=== PATIENT | female | born 1950 | race Caucasian/White ===

== ENCOUNTER → 2017-06-26 | Outpatient (CLI) | payer BC ==
[~2017-06-26] MED LIST: ASCO100T PO; ASPI81TA28 PO; ATOR-22 PO; CALC-323 PO; MULTTAB58 PO; RISE150T PO; VITA-23 PO
--- NOTE | 2017-06-27 07:44 | MAMMOGRAPHY REPORT ---
BILATERAL DIGITAL SCREENING MAMMOGRAM WITH CAD: 06/26/2017 CLINICAL HISTORY: Routine screening. Patient has no complaints. TECHNIQUE: Bilateral CC and MLO views of the breasts with repeat CC and MLO views to include nipples in profile and more axillary tail tissue were also obtained. Current study was also evaluated with a Computer Aided Detection (CAD) system. COMPARISON: Comparison is made to exams dated: 06/23/2016 mammogram, 06/22/2015 mammogram, 06/19/2014 mamm ogram, 06/16/2013 mammogram, 06/13/2012 mammogram, and 06/12/2011 mammogram - [facility] er. BREAST COMPOSITION: There are scattered areas of fibroglandular density in both breasts. FINDINGS: The parenchymal pattern is similar to prior exams. There is stable asymmetry in the latera l right breast. No new suspicious mass, architectural distortion or cluster of microcalcifications i s seen. IMPRESSION: ACR BI-RADS CATEGORY 1: NEGATIVE There is no mammographic evidence of malignancy. A 1 year screening mammogram is recommended. The pa tient will receive written notification of the results. Approximately 10% of breast cancers are not detected with mammography. A negative mammographic report should not delay biopsy if a clinically suggestive mass is present. Steph Gunderson M.D. ay/:06/26/2017 15:16:56 Robotics Specialist: Cassie Dickey, [facility] letter sent: Normal 1/2 BI-RADS Code: ACR BI-RADS Category 1: Negative
== END | disposition home or self-care (01) ==
LOC: C.MAMM 09:22
PROVIDERS: ATTEND Obstetrics & Gynecology
DX: Z12.31 Encounter for screening mammogram for malignant neoplasm of breast (principal)

== ENCOUNTER → 2017-10-05 | Outpatient (CLI) | payer BC ==
[~2017-10-05] MED LIST changes: -ASCO100T PO; +ASCO100T4 PO
[2017-10-05 12:42] LABS: ESTIMATED AVERAGE GLUCOSE 128 mg/dl; HA1C FLAG Normal (Normal)
[2017-10-05 12:49] LABS: URINE APPEARANCE CLEAR (CLEAR); URINE BILIRUBIN NEG (NEG); URINE COLOR YELLOW; URINE EPITHELIAL CELL AUTO >30 /lpf (0-5); URINE NITRITE NEG (NEG); URINE SPECIFIC GRAVITY 1.005 (1.000-1.030); UROBILINOGEN NEG (NEG)
[2017-10-05 12:51] LABS: MANUAL MICROSCOPIC REQUIRED? NO; REVIEW REQ? NO
[2017-10-05 12:53] LABS: BASO % 0.9 %; BASO ABS # 0.07 K/uL (0-0.2); COMPLETE YES; EOS % 4.1 %; HEMATOCRIT 42.2 % (37-47); IG% 0.1 %; LYMPH % 17.2 %; LYMPH ABS # 1.31 K/uL (1.2-3.4); MEAN CELL VOLUME 90.9 fL (80-100); MEAN CORPUSCULAR HEMOGLOBIN 29.7 pg (25-34); MEAN CORPUSCULAR HGB CONC 32.7 g/dl (32-36); MEAN PLATELET VOLUME 12.2 fL (7.4-10.4); MONO % 11.1 %; NEUT % 66.6 %; PLATELET COUNT 264 K/uL (130-400); RED BLOOD COUNT 4.64 M/uL (4.2-5.4)
[2017-10-05 13:03] LABS: ALT/SGPT 25 U/L (12-78); AST/SGOT 19 U/L (15-37); BLOOD UREA NITROGEN 16 mg/dl (7-18); BUN/CREATININE RATIO 20.9 (10-20); CALCIUM 8.9 mg/dl (8.5-10.1); CARBON DIOXIDE 28 mmol/L (21-32); CHLORIDE 102 mmol/L (98-107); CREATININE 0.77 mg/dl (0.60-1.20); GLUCOSE 86 mg/dl (70-99); POTASSIUM 3.9 mmol/L (3.5-5.1); SODIUM 136 mmol/L (136-145)
[2017-10-05 13:15] LABS: ALKALINE PHOSPHATASE 56 U/L (45-117); CHOLESTEROL 166 mg/dl (0-200); CHOLESTEROL/HDL RATIO 1.8; HDL CHOLESTEROL 91 mg/dl; LDL CHOLESTEROL CALCULATED 63 mg/dl; TRIGLYCERIDES 58 mg/dl (0-150); VERY LOW DENSITY LIPOPROT CALC 12 mg/dl
== END | disposition home or self-care (01) ==
LOC: C.LABPBG 07:39
PROVIDERS: ATTEND Internal Medicine Pulmonary Disease
DX: Z00.00 Encounter for general adult medical examination without abnormal findings (principal); E78.5 Hyperlipidemia, unspecified; G80.9 Cerebral palsy, unspecified; R73.9 Hyperglycemia, unspecified

== ENCOUNTER → 2018-01-22 | Day surgery (SDC) | payer BC ==
[2017-12-18 14:15] VITALS: Ht 162.6 cm; Wt 95.5 kg
--- NOTE | 2018-01-10 13:29 | History and Physical: Surg Cnt ---
History & Physical Date Jan 10, 2018. Chief Complaint preoperative clearance for cataract surgery History of Present Illness Pt. is a 67 y.o. female with a medical history significant for anxiety, cerebral palsy, diverticulosis, HLD, and internal hemorrhoids. She presents preoperative cataracts surgery clearance. She is scheduled for left eye cataract surgery on 01/22/2018 and right eye cataract surgery on 02/05/2018. Dr. Hubbard is her surgeon. She has had prior surgery without complication with the exception of difficulty waking up following a tubal ligation in 1984. She has had surgeries since without problems. She has never had postop complications. There is no personal or FMHx of thromboembolic complications. In regards to symptoms she states that she does have difficulty seeing at night d/t her cataracts. The remainder of her ROS however was negative. She denied headache, cough, SOB, chest pain, abdominal pain, N/V, changes in her bowel or bladder habits, mood disturbance, bleeding problems, or skin changes. Her PMHx, surgical history, FMHx, social history, current medications, and allergies were reviewed today. In the interim since her last appointment she has had a basal cell CA removed. Past Medical/Surgical History PMHx: cerebral palsy, anxiety, diverticulosis, HLD, basal cell CA of the skin, internal hemorrhids PSHx: tubal ligation, hysterectomy, and a deviated nasal septum repair Additional History Hepatic Disease: No Endocrine Disorder: No Kidney Disease: No Hypertension: No Heart Disease: No Bleeding Tendencies: No Infectious Diseases: No Allergies Coded Allergies: Meperidine (Verified Allergy, Unknown, VOMITING, 12/18/17) Home Medications Scheduled Ascorbic Acid (Vitamin C), 1 TAB PO BID Aspirin (Aspirin Ec), 81 MG PO QAM Atorvastatin (Lipitor), 20 MG PO HS Calcium Citrate-Vitamin D (Citracal Maximum), 1 TAB PO BID Vitamin E (Vitamin E Complex), 1 TAB PO QAM Social History Smoking Status: Never Smoker Alcohol Use: minimal alcohol intake Physical Examination Skin: warm/dry, no rash Eyes: normal inspection, EOMI, sclerae normal ENT: normal ENT inspection, pharynx normal Head: normocephalic, atraumatic Neck: supple, no adenopathy, trachea midline Respiratory/Chest: lungs clear, normal breath sounds, no respiratory distress Cardiovascular: regular rate, rhythm, no edema, no murmur Abdomen / GI: normal bowel sounds, non tender Back: normal inspection Extremities: normal inspection Neurologic/Psych: no motor/sensory deficits, alert Addiitonal Comments: Pt. is a 67 y.o. female who presents for preoperative clearance for cataract surgery. She is scheduled for left eye cataract surgery on 01/22/2018 and right eye cataract surgery on 02/05/2018. Her surgeon is Dr. Hubbard. She has been cleared from a medical standpoint for cataract surgery as there is no absolute contraindication and she is considered an acceptable risk. Diagnosis PreOperative Clearance for bilateral cataract surgery Operation Cataract
[~2018-01-22] VITALS: Ht 162.6 cm; Wt 95.5 kg
[~2018-01-22] MED LIST changes: +500ML BSS 0.3ML EPI 1:1000PF IRRIG ONE; +ACETAMINOPHEN 325 MG TAB PO PRN; +AMVISC PLAIN 0.8ML SYRINGE INT OCU ONE; +AMVISC PLUS 0.8ML SYRINGE INT OCU ONE; +ATROPINE SULFATE 0.1 MG/ML 5ML SYR IV PRN; +BROM0.07 OPL; +BSS FLUSH ONE; +DIFL0.0519 OPL; +EpHEDrine SULFATE INJ 50 MG/ML AMP IV PRN; +EpINEphrine INJ 1MG/ML AMP 1 MG/ML AMP ONE; +LACTATED RINGER'S 1000ML 500 ML IV SCH; +LIDOCAINE 3.5% OPH GEL PER APPLICATION CHARGE ONE; +LIDOCAINE HCL 1% MPF 2 ML VIAL ONE; +MIDAZOLAM HCL 1 MG/ML 2ML VIAL ONE; -MULTTAB58 PO; +POVIDONE-IODINE OP SOLN 30 ML BTL ONE; +PROPARACAINE 0.5% OP SOLN PER DROP CHARGE OPL SCH; -RISE150T PO; +TOBRAMYCIN/DEXAMETHASONE OPH OINT PER APPLN CHARGE ONE; +[UNRECOGNIZED DRUG - OTHER] OPL
[2018-01-22] MEDS: PHENYLEPHRINE HCL 2.5% OP SOLN PER DROP CHARGE OPL SCH ×2 (07:40→07:45)
[2018-01-22] MEDS: TROPICAMIDE 1% OP SOLN PER DROP CHARGE OPL SCH ×2 (07:41→07:46)
[2018-01-22] MEDS: CYCLOPENTOLATE HCL 1% OP SOLN PER DROP CHARGE OPL SCH ×2 (07:42→07:47)
[2018-01-22] MEDS: KETOROLAC 0.5% OP SOLN PER DROP CHARGE OPL SCH ×2 (07:43→07:48)
[2018-01-22] MEDS: GATIFLOXACIN OP SOLN PER DROP CHARGE OPL SCH ×2 (07:44→07:54)
--- NOTE | 2018-01-22 08:23 | History & Physical Bridge - SC ---
H&P Re-Evaluation Bridge Note: I have examined the patient, reviewed the History & Physical and in the interval since the performance of the History & Physical I have noted the following changes of clinical significance: Diagnosis: Left Cataract Procedure: Left Cataract Removal with Lens Implant No changes noted
--- NOTE | 2018-01-22 08:53 | [facility] Operative Report ---
Operative Report Date of Service Jan 22, 2018. Operative Report 1. PREOPERATIVE DIAGNOSIS: Cataract of the left eye. 2. POSTOPERATIVE DIAGNOSIS: Same. 3. PROCEDURE: Phacoemulsification with intraocular lens implantation of the left eye. SURGEON: Dr. Adis Hubbard. ANESTHESIA: Topical Lidocaine gel, 1% Non- Preserved intracameral Lidocaine, and monitored intravenous sedation. INDICATIONS FOR THE PROCEDURE: The patient is a 67 - year-old female with a history of cataract of the left eye causing significant visual impairment. The details of the proposed procedure were explained to the patient who asked appropriate questions and following discussion of all risks, benefits and alternatives agreed to have the procedure done. Patient had corneal astigmatism and therefore elected to have a toric lens placed. 4. OPERATION AND FINDINGS: DESCRIPTION OF PROCEDURE: After informed consent was obtained, the patient was placed in an upright position and the cornea was marked at 85 degrees using the Joox corneal marking tool. The patient was brought to the Operating Room at the [facility]. The patient was placed in a supine position and then the left eye was prepped and draped in the usual sterile fashion for intraocular surgery. A drop of topical Lidocaine gel was placed in the operative eye. A wire lid speculum was then placed in the fornices. A corneal paracentesis was then created temporally. The Non-Preserved Lidocaine was then instilled into the anterior chamber. The anterior chamber was then pressurized with viscoelastic. A 2.0 mm clear corneal incision was then created temporally. A cystotome was inserted into the anterior chamber and used to create a tear in the anterior lens capsule. This capsular tear was then used to create a small flap and the flap was dragged in a counterclockwise direction in order to create a continuous curvilinear capsulorrhexis. Hydrodissection was accomplished with balanced salt solution. Phacoemulsification of the lens nucleus was then performed in a standard [id number]-bfl-[id number] technique. The phaco time was 20 seconds with an average power of 13 %. The remaining cortical material was removed using irrigation aspiration. The capsular bag was then filled with viscoelastic. A Yuri [id number] +17.5 diopters lens was then loaded into the injector and injected into the capsular bag. The lens was aligned with the previously made corneal baldwin. The remaining viscoelastic was removed with the irrigation aspiration handpiece. The wound was hydrated and then checked and found to be watertight. The intraocular pressure was checked and found to be adequate. The wire lid speculum was removed and the patient's face was cleaned and dried. TobraDex ointment was placed in the inferior fornix. The patient was discharged to the Recovery Room having tolerated the procedure well. There were no complications. The patient will be seen tomorrow in the office for follow-up. I attest to the content of the Intraoperative Record and any orders documented therein. Any exceptions are noted below.
--- NOTE | 2018-01-22 08:54 | Discharge Instructions-SurgCtr ---
Discharge Instructions Date of Service Jan 22, 2018. Visit Reason for Visit: Cataract Left Eye Discharge Discharge Diagnosis / Problem: cataract Discharge Goals Goal(s): Improve function Activity Recommendations Activity Limitations: per Instructions/Follow-up section Anesthesia . Post Anesthesia Instructions: If you have had General Anesthesia or IV Sedation: * Do not drive today. * Resume driving when surgeon permits. * Do not make important decisions or sign legal documents today. * Call surgeon for: 1. Temperature elevations greater than 101 degrees F. 2. Uncontrollable pain. 3. Excessive bleeding. 4. Persistent nausea and vomiting. 5. Medication intolerance (nausea, vomiting or rash). * For nausea and vomiting use only clear liquids such as: tea, soda, bouillon until nausea subsides, then gradually increase diet as tolerated. * If you have any concerns or questions, call your surgeon's office. If physician is unavailable and it is an emergency, call 911 or go to the nearest emergency room. . Diet Recommendations Home Diet: resume previous diet Procedures Procedures Performed: Left Cataract Phacoemulsification With Intraocular Lens Implant Pending Studies Studies pending at discharge: no Medical Emergencies . Who to Call and When: Medical Emergencies: If at any time you feel your situation is an emergency, please call 911 immediately. . Non-Emergent Contact Non-Emergency issues call your: Explosive Man . . "Provider Documentation" section prepared by Adis Hubbard. .
--- NOTE | 2018-01-22 09:22 | Anesthesia Progress Nt - [facility] ---
Anesthesia Post Op Note Date & Time Jan 22, 2018 at 09:22 Vital Signs Pain Intensity: 0 Vital Signs Past 12 Hours Date Time Temp Pulse Resp B/P (MAP) Pulse Ox O2 Delivery O2 Flow Rate FiO2 01/22/18 08:54 36.7 68 16 124/75 (91) 99 Room Air 01/22/18 07:29 36.7 70 20 136/77 (96) 97 Room Air Notes Mental Status: alert / awake / arousable, participated in evaluation Pt Amnestic to Procedure: Yes Nausea / Vomiting: adequately controlled Pain: adequately controlled Airway Patency, RR, SpO2: stable & adequate BP & HR: stable & adequate Hydration State: stable & adequate Anesthetic Complications: no major complications apparent
[2018-01-22 09:33] VITALS: BP 137/88; PULSE 70; O2SAT 97
== END | disposition home or self-care (01) ==
LOC: X.SURG 07:03
PROVIDERS: ATTEND Ophthalmology
DX: H26.9 Unspecified cataract (principal); G80.9 Cerebral palsy, unspecified; E78.5 Hyperlipidemia, unspecified; E66.9 Obesity, unspecified; Z68.39 Body mass index [BMI] 39.0-39.9, adult; Z90.710 Acquired absence of both cervix and uterus; Z88.6 Allergy status to analgesic agent; Z79.82 Long term (current) use of aspirin; Z98.51 Tubal ligation status; Z98.890 Other specified postprocedural states; Z85.828 Personal history of other malignant neoplasm of skin; Z82.49 Family history of ischemic heart disease and other diseases of the circulatory system; Z80.0 Family history of malignant neoplasm of digestive organs

== ENCOUNTER → 2018-02-05 | Day surgery (SDC) | payer BC ==
[2018-02-01 11:04] VITALS: Ht 162.6 cm; Wt 95.5 kg
[~2018-02-05] VITALS: Ht 162.6 cm; Wt 95.5 kg
[~2018-02-05] MED LIST changes: -BROM0.07 OPL; -DIFL0.0519 OPL; +OCUCOAT 1 ML SOLN IO ONE; -PROPARACAINE 0.5% OP SOLN PER DROP CHARGE OPL SCH; +PROPARACAINE 0.5% OP SOLN PER DROP CHARGE OPR SCH; -[UNRECOGNIZED DRUG - OTHER] OPL
[2018-02-05] MEDS: PHENYLEPHRINE HCL 2.5% OP SOLN PER DROP CHARGE OPR SCH ×2 (07:33→07:40)
[2018-02-05] MEDS: TROPICAMIDE 1% OP SOLN PER DROP CHARGE OPR SCH ×2 (07:34→07:41)
[2018-02-05] MEDS: CYCLOPENTOLATE HCL 1% OP SOLN PER DROP CHARGE OPR SCH ×2 (07:35→07:46)
--- NOTE | 2018-02-05 07:35 | History & Physical Bridge - SC ---
H&P Re-Evaluation Bridge Note: I have examined the patient, reviewed the History & Physical and in the interval since the performance of the History & Physical I have noted the following changes of clinical significance: No changes noted
[2018-02-05] MEDS: KETOROLAC 0.5% OP SOLN PER DROP CHARGE OPR SCH ×2 (07:36→07:47)
[2018-02-05] MEDS: GATIFLOXACIN OP SOLN PER DROP CHARGE OPR SCH ×2 (07:37→07:48)
--- NOTE | 2018-02-05 08:17 | [facility] Operative Report ---
Operative Report Date of Service Feb 05, 2018. Operative Report 1. PREOPERATIVE DIAGNOSIS: Cataract of the right eye. 2. POSTOPERATIVE DIAGNOSIS: Same. 3. PROCEDURE: Phacoemulsification with intraocular lens implantation of the right eye. SURGEON: Dr. Adis Hubbard. ANESTHESIA: Topical Lidocaine gel, 1% Non- Preserved intracameral Lidocaine, and monitored intravenous sedation. INDICATIONS FOR THE PROCEDURE: The patient is a 67 - year-old female with a history of cataract of the right eye causing significant visual impairment. The details of the proposed procedure were explained to the patient who asked appropriate questions and following discussion of all risks, benefits and alternatives agreed to have the procedure done. Patient had corneal astigmatism and therefore elected to have a toric lens placed. 4. OPERATION AND FINDINGS: DESCRIPTION OF PROCEDURE: After informed consent was obtained, the patient was placed in an upright position and the cornea was marked at 77 degrees using the [employer] corneal marking tool. The patient was brought to the Operating Room at the [facility]. The patient was placed in a supine position and then the right eye was prepped and draped in the usual sterile fashion for intraocular surgery. A drop of topical Lidocaine gel was placed in the operative eye. A wire lid speculum was then placed in the fornices. A corneal paracentesis was then created temporally. The Non-Preserved Lidocaine was then instilled into the anterior chamber. The anterior chamber was then pressurized with viscoelastic. A 2.0 mm clear corneal incision was then created temporally. A cystotome was inserted into the anterior chamber and used to create a tear in the anterior lens capsule. This capsular tear was then used to create a small flap and the flap was dragged in a counterclockwise direction in order to create a continuous curvilinear capsulorrhexis. Hydrodissection was accomplished with balanced salt solution. Phacoemulsification of the lens nucleus was then performed in a standard doshso-cea-hvubhfl technique. The phaco time was 20 seconds with an average power of 11 %. The remaining cortical material was removed using irrigation aspiration. The capsular bag was then filled with viscoelastic. A Yuri [id number] +17.5 diopters lens was then loaded into the injector and injected into the capsular bag. The remaining viscoelastic was removed with the irrigation aspiration handpiece. The lens was aligned with the previously made corneal baldwin. The wound was hydrated and then checked and found to be watertight. The intraocular pressure was checked and found to be adequate. The wire lid speculum was removed and the patient's face was cleaned and dried. TobraDex ointment was placed in the inferior fornix. The patient was discharged to the Recovery Room having tolerated the procedure well. There were no complications. The patient will be seen tomorrow in the office for follow-up. I attest to the content of the Intraoperative Record and any orders documented therein. Any exceptions are noted below.
--- NOTE | 2018-02-05 08:18 | Discharge Instructions-SurgCtr ---
Discharge Instructions Date of Service Feb 05, 2018. Visit Reason for Visit: Cataract Right Eye Discharge Discharge Diagnosis / Problem: cataract Discharge Goals Goal(s): Improve function Activity Recommendations Activity Limitations: per Instructions/Follow-up section Anesthesia . Post Anesthesia Instructions: If you have had General Anesthesia or IV Sedation: * Do not drive today. * Resume driving when surgeon permits. * Do not make important decisions or sign legal documents today. * Call surgeon for: 1. Temperature elevations greater than 101 degrees F. 2. Uncontrollable pain. 3. Excessive bleeding. 4. Persistent nausea and vomiting. 5. Medication intolerance (nausea, vomiting or rash). * For nausea and vomiting use only clear liquids such as: tea, soda, bouillon until nausea subsides, then gradually increase diet as tolerated. * If you have any concerns or questions, call your surgeon's office. If physician is unavailable and it is an emergency, call 911 or go to the nearest emergency room. . Diet Recommendations Home Diet: resume previous diet Procedures Procedures Performed: Right Cataract Phacoemulsification With Intraocular Lens Implant; Toric Lens Pending Studies Studies pending at discharge: no Medical Emergencies . Who to Call and When: Medical Emergencies: If at any time you feel your situation is an emergency, please call 911 immediately. . Non-Emergent Contact Non-Emergency issues call your: Hydrochloric Acid Operator . . "Provider Documentation" section prepared by Adis Hubbard. .
[2018-02-05 08:19] VITALS: TEMP 37.1
[2018-02-05 08:46] VITALS: BP 143/96; PULSE 70; O2SAT 98
--- NOTE | 2018-02-05 08:50 | Anesthesia Progress Nt - [facility] ---
Anesthesia Post Op Note Date & Time Feb 05, 2018 at 08:50 Vital Signs Pain Intensity: 2 Vital Signs Past 12 Hours Date Time Temp Pulse Resp B/P (MAP) Pulse Ox O2 Delivery O2 Flow Rate FiO2 02/05/18 08:46 70 16 143/96 (112) 98 Room Air 02/05/18 08:19 37.1 69 18 117/71 (86) 99 Room Air 02/05/18 07:08 36.7 70 16 168/85 (112) 97 Room Air Notes Mental Status: alert / awake / arousable, participated in evaluation Pt Amnestic to Procedure: Yes Nausea / Vomiting: adequately controlled Pain: adequately controlled Airway Patency, RR, SpO2: stable & adequate BP & HR: stable & adequate Hydration State: stable & adequate Anesthetic Complications: no major complications apparent
== END | disposition home or self-care (01) ==
LOC: X.SURG 06:41
PROVIDERS: ATTEND Ophthalmology
DX: H26.8 Other specified cataract (principal); F41.9 Anxiety disorder, unspecified; G80.9 Cerebral palsy, unspecified; E78.5 Hyperlipidemia, unspecified; G81.90 Hemiplegia, unspecified affecting unspecified side; Z85.828 Personal history of other malignant neoplasm of skin; Z82.49 Family history of ischemic heart disease and other diseases of the circulatory system; Z79.82 Long term (current) use of aspirin; Z79.899 Other long term (current) drug therapy

== ENCOUNTER 2018-02-15 13:37 | Emergency (ER) | payer BC ==
[~2018-02-15 13:37] MED LIST changes: -500ML BSS 0.3ML EPI 1:1000PF IRRIG ONE; -ACETAMINOPHEN 325 MG TAB PO PRN; -AMVISC PLAIN 0.8ML SYRINGE INT OCU ONE; -AMVISC PLUS 0.8ML SYRINGE INT OCU ONE; -ATROPINE SULFATE 0.1 MG/ML 5ML SYR IV PRN; -BSS FLUSH ONE; -EpHEDrine SULFATE INJ 50 MG/ML AMP IV PRN; -EpINEphrine INJ 1MG/ML AMP 1 MG/ML AMP ONE; -LACTATED RINGER'S 1000ML 500 ML IV SCH; -LIDOCAINE 3.5% OPH GEL PER APPLICATION CHARGE ONE; -LIDOCAINE HCL 1% MPF 2 ML VIAL ONE; -MIDAZOLAM HCL 1 MG/ML 2ML VIAL ONE; -OCUCOAT 1 ML SOLN IO ONE; -POVIDONE-IODINE OP SOLN 30 ML BTL ONE; -PROPARACAINE 0.5% OP SOLN PER DROP CHARGE OPR SCH; -TOBRAMYCIN/DEXAMETHASONE OPH OINT PER APPLN CHARGE ONE
[2018-02-15 13:39] VITALS: Ht 162.6 cm
[2018-02-15] MEDS ORDERED: OXYCODONE HCL IR 5 MG TAB (IMMEDIATE RELEASE) PO STA (14:06)
--- NOTE | 2018-02-15 14:11 | EMERGENCY ROOM VISIT NOTE ---
History Report prepared by Yulisa: Tahir Sanches Under the Supervision of: Dr. Leonel Peralta M.D. First contact with patient: 13:58 Chief Complaint: BACK PAIN Stated Complaint: BACK PAIN History of Present Illness The patient is a 67 year old female who presents to the Emergency Room with complaints of constant back pain that began 2 days ago. She current rates her discomfort a 9/10 in severity. The patient states she had a mechanical fall 2 days ago when her leg slipped out from under her. She states that her pain worsens with movement and heat. She states that she has Cerebral Palsy and her left foot movement is unchanged from baseline. She has had minimal improvement with Aleve. She is allergic to Demerol. She denies hip pain, abdominal pain, bruises, loss of bowl or bladder control, fevers, and chills. She denies using a walker. She drove over to the ED. Source of History: patient Onset: 3 days ago Position: back Symptom Intensity: 9/10 Timing: constant Modifying Factors (Worsening): movement, other (heat) Modifying Factors (Relieving): other (minimal relief from Alleve) Associated Symptoms: No fevers, No chills, No abdominal pain Note: Patient denies hip pain, bruises, loss of bowel or bladder control. Review of Systems See HPI for pertinent positives & negatives. A total of 10 systems reviewed and were otherwise negative. Past Medical & Surgical Medical Problems: (1) HTN (hypertension) Family History FHx: cancer FHx: heart disease Hypertension Social History Smoking Status: Never Smoker Alcohol Use: none Drug Use: none Marital Status: in relationship Housing Status: lives with friends Occupation Status: unemployed Current/Historical Medications Scheduled Ascorbic Acid (Ascorbic Acid), 1 TAB PO DAILY Aspirin (Aspirin Ec), 81 MG PO QAM Atorvastatin (Lipitor), 20 MG PO HS Calcium Citrate-Vitamin D (Citracal Maximum), 1 TAB PO BID Sertraline (Zoloft), 25 MG PO DAILY Vitamin E (Vitamin E Complex), 1 TAB PO QAM Allergies Coded Allergies: Meperidine (Verified Allergy, Unknown, VOMITING, 02/15/18) Physical Exam Vital Signs Date Time Temp Pulse Resp B/P (MAP) Pulse Ox O2 Delivery O2 Flow Rate FiO2 02/15/18 15:56 36.6 77 18 139/81 98 02/15/18 15:55 77 18 139/81 98 Room Air 02/15/18 13:39 36.6 73 18 160/86 98 Room Air Physical Exam GENERAL: Patient is uncomfortable appearing and in mild distress. She has pain with sitting up. EYES: No scleral icterus, unremarkable pupils. ENT: Mucous membranes moist, no nasal congestion. NECK: No masses appreciated, no meningismus, trachea is midline. RESPIRATORY: No dyspnea. Clear to auscultation and equal bilaterally. No wheeze , no rhonchi. CARDIOVASCULAR: Regular rate and rhythm. No murmurs, rubs, gallops appreciated. GASTROINTESTINAL: Abdomen soft, nontender, no peritonitis. Bowel sounds positive. No masses appreciated. BACK: Tenderness to palpation below lumbar back and low left lumbar back. No midline tenderness, no CVA tenderness EXTREMITIES: Mild pain with range of motion of left hip. Flexion issues of left arm and left leg which is chronic.Wasting of left arm. No cyanosis, no edema. NEUROLOGIC: Alert and oriented, no acute motor or sensory deficits, no focal weakness, cranial nerves grossly intact. SKIN: No rash, no jaundice, no diaphoresis. Medical Decision & Procedures ER Provider Diagnostic Interpretation: Radiology results and stated below per my review and radiologist interpretation: L PELVIS/UNILATERAL HIP 2-3VIEWS CLINICAL HISTORY: low left back pain in to left hip s/p fall 48 hrs ago trauma. Pain. COMPARISON: None. DISCUSSION: Mild degenerative changes of the hips bilaterally. No evidence for acute bony pathology. Study is specifically negative for fracture. No evidence for acetabular protrusion. There is no evidence for soft tissue swelling. IMPRESSION: Mild generalized degenerative change. No acute bony abnormality. The above report was generated using voice recognition software. It may contain grammatical, syntax or spelling errors. Electronically signed by: Maycol Ordoñez M.D. 02/15/2018 2:43 PM Dictated Date/Time: 02/15/2018 2:39 PM L-SPINE MIN 4 VIEWS ROUTINE CLINICAL HISTORY: Low back and left hip pain. Trauma. COMPARISON STUDY: No previous studies for comparison. FINDINGS: There are multilevel degenerative changes with disc space narrowing most pronounced at the L5-S1 level. There is a sacral deformity, likely relating to old trauma. There are minor superior endplate deformities at the L1, L2 and L3 levels. These are likely old. If there is a strong clinical concern over the presence and of acute fracture, a CT scan of the lumbar spine and sacrum could be obtained in follow-up. IMPRESSION: 1. Multilevel degenerative changes most pronounced the L5-S1 level 2. Sacral deformity, likely related to old trauma 3. Minor superior endplate deformities, again likely chronic Electronically signed by: Ubaldo Post M.D. 02/15/2018 2:39 PM Dictated Date/Time: 02/15/2018 2:36 PM Medications Administered Medications (Trade) Dose Ordered Sig/Santosh Route Start Time Stop Time Status Last Admin Dose Admin Oxycodone HCl (Roxicodone Immediate Rel Tab) 5 mg NOW STAT PO 02/15/18 14:06 02/15/18 14:07 DC 02/15/18 14:16 5 MG Oxycodone HCl (Roxicodone Immediate Rel 5MG Home Pack) 1 homepack UD ONCE PO 02/15/18 15:45 02/15/18 15:46 DC 02/15/18 15:49 1 HOMEPACK ED Course 1358: The patient was evaluated in room C8. A complete history and physical exam was performed. 1535: I checked on the patient and she is feeling better. She will follow up with her PCP next week if symptoms continue. 1540: Reevaluated the patient. Discussed results and discharge instructions: She verbalized understanding and agreement. The patient is ready for discharge. Medical Decision 67 yr old female with fall at home 2 days ago (mechanical) arrives for continued LL back pain in to hip. No fx nor dislocation though fair about of degenerative changes. Old findings noted to patient which I do not feel require emergent further evaluation. Suspect contusion/strain. She tolerated PO Oxy well thus will send home with limited number of these without Rx. She is aware of restrictions/dangers. She will follow up with PCP next week if continued discomfort, here is worsening. Head Trauma GCS Score: 15 Medication Reconcilliation Current Medication List: was personally reviewed by me Blood Pressure Screening Patient's blood pressure: Elevated blood pressure Blood pressure disposition: Elevated BP felt to be situational Impression Primary Impression: Acute lumbar back pain Additional Impression: Lumbosacral strain Scribe Attestation The scribe's documentation has been prepared under my direction and personally reviewed by me in its entirety. I confirm that the note above accurately reflects all work, treatment, procedures, and medical decision making performed by me. Departure Information Dispostion Home / Self-Care Referrals Lex Cabezas M.D. (PCP) Forms HOME CARE DOCUMENTATION FORM, IMPORTANT VISIT INFORMATION Patient Instructions ED Low Back Pain Injury, My [facility] Additional Instructions You have received a narcotic pain medication. These medications may cause drowsiness and should not be used with other sedative medications. Do not drive , drink alcohol, perform dangerous activities, nor make important decisions after taking these medications. correction use or inappropriate use may lead to addiction. Problem Qualifiers
--- NOTE | 2018-02-15 14:40 | DIAGNOSTIC IMAGING REPORT ---
L-SPINE MIN 4 VIEWS ROUTINE CLINICAL HISTORY: Low back and left hip pain. Trauma. COMPARISON STUDY: No previous studies for comparison. FINDINGS: There are multilevel degenerative changes with disc space narrowing most pronounced at the L5-S1 level. There is a sacral deformity, likely relating to old trauma. There are minor superior endplate deformities at the L1, L2 and L3 levels. These are likely old. If there is a strong clinical concern over the presence and of acute fracture, a CT scan of the lumbar spine and sacrum could be obtained in follow-up. IMPRESSION: 1. Multilevel degenerative changes most pronounced the L5-S1 level 2. Sacral deformity, likely related to old trauma 3. Minor superior endplate deformities, again likely chronic Electronically signed by: Ubaldo Post M.D. 02/15/2018 2:39 PM Dictated Date/Time: 02/15/2018 2:36 PM
--- NOTE | 2018-02-15 14:45 | DIAGNOSTIC IMAGING REPORT ---
L PELVIS/UNILATERAL HIP 2-3VIEWS CLINICAL HISTORY: low left back pain in to left hip s/p fall 48 hrs ago trauma. Pain. COMPARISON: None. DISCUSSION: Mild degenerative changes of the hips bilaterally. No evidence for acute bony pathology. Study is specifically negative for fracture. No evidence for acetabular protrusion. There is no evidence for soft tissue swelling. IMPRESSION: Mild generalized degenerative change. No acute bony abnormality. The above report was generated using voice recognition software. It may contain grammatical, syntax or spelling errors. Electronically signed by: Maycol Ordoñez M.D. 02/15/2018 2:43 PM Dictated Date/Time: 02/15/2018 2:39 PM
[2018-02-15] MEDS ORDERED: SERT25TA PO (15:24)
[2018-02-15] MEDS ORDERED: ASCO100061 PO (15:24)
[2018-02-15] MEDS ORDERED: OXYCODONE IR HOME PACK PO ONE (15:45)
[2018-02-15 15:56] VITALS: BP 139/81; PULSE 77; TEMP 36.6; O2SAT 98
== END 2018-02-15 15:58 | disposition home or self-care (01) ==
LOC: C.EDB 13:38 → C.EDC 15:58
DX: S39.012A Strain of muscle, fascia and tendon of lower back, initial encounter (principal); W19.XXXA Unspecified fall, initial encounter; Y92.008 Other place in unspecified non-institutional (private) residence as the place of occurrence of the external cause; M47.816 Spondylosis without myelopathy or radiculopathy, lumbar region; M62.58 Muscle wasting and atrophy, not elsewhere classified, other site; I10 Essential (primary) hypertension; Z79.82 Long term (current) use of aspirin; Z88.6 Allergy status to analgesic agent

== ENCOUNTER → 2018-03-04 | Outpatient (CLI) | payer BC ==
[~2018-03-04] MED LIST changes: +ASCO100061 PO; -ASCO100T4 PO; +SERT25TA PO
--- NOTE | 2018-03-04 10:47 | DIAGNOSTIC IMAGING REPORT ---
L-SPINE MIN 4 VIEWS ROUTINE CLINICAL HISTORY: M54.5 Low back [id number].XXXA Fall at home fall 03/04/[id number] COMPARISON STUDY: 02/15/2018 FINDINGS: There is a new L2 compression fracture demonstrating nearly 50% loss in height centrally. There are no subluxations. There are multilevel degenerative changes. There is an old sacral deformity. There is no pathologic bowel dilatation. There is a persistent nonspecific 3 mm left upper quadrant calcification. IMPRESSION: Interval development of an L2 compression fracture demonstrating nearly 50% loss in height. Electronically signed by: Ubaldo Post M.D. 03/04/2018 10:45 AM Dictated Date/Time: 03/04/2018 10:43 AM
== END | disposition home or self-care (01) ==
LOC: C.RAD1850 10:20
PROVIDERS: ATTEND Physician Assistant Medical
DX: S32.020A Wedge compression fracture of second lumbar vertebra, initial encounter for closed fracture (principal); W19.XXXA Unspecified fall, initial encounter

== ENCOUNTER → 2018-06-27 | Outpatient (CLI) | payer BC ==
--- NOTE | 2018-06-27 15:11 | MAMMOGRAPHY REPORT ---
BILATERAL DIGITAL SCREENING MAMMOGRAM TOMOSYNTHESIS WITH CAD: 06/27/2018 CLINICAL HISTORY: Routine screening. Patient has no complaints. TECHNIQUE: The study was acquired using full field digital technology and interpreted from soft copy. Breast tomosynthesis in addition to standard 2D mammography was performed. Current study was also ev aluated with a Computer Aided Detection (CAD) system. COMPARISON: Comparison is made to exams dated: 06/26/2017 mammogram, 06/23/2016 mammogram, 06/22/2015 mamm ogram, 06/19/2014 mammogram, 06/16/2013 mammogram, and 06/13/2012 mammogram - [facility] BREAST COMPOSITION: There are scattered areas of fibroglandular density in both breasts. FINDINGS: No suspicious masses, calcifications, or areas of architectural distortion are noted in either breast . There has been no significant interval change compared to prior exams. IMPRESSION: ACR BI-RADS CATEGORY 1: NEGATIVE There is no mammographic evidence of malignancy. A 1 year screening mammogram is recommended.( [id number]) The patient will receive written notification of the results. Some breast cancers are not detected with mammography. A negative mammographic report should not jesse y biopsy if a clinically suggestive mass is present. Veronika Ortega M.D. ah/:06/27/2018 11:01:35 Psychology Technician: RT Saad(Wes)(M), [facility] letter sent: Normal 1/2 BI-RADS Code: ACR BI-RADS Category 1: Negative
== END | disposition home or self-care (01) ==
LOC: C.MAMM 09:26
PROVIDERS: ATTEND Internal Medicine Pulmonary Disease
DX: Z12.31 Encounter for screening mammogram for malignant neoplasm of breast (principal)

== ENCOUNTER → 2018-07-11 | Outpatient (CLI) | payer BC | END | disposition home or self-care (01) | LOC: C.MAMM 10:18 | PROVIDERS: ATTEND Internal Medicine Pulmonary Disease | DX: M85.88 Other specified disorders of bone density and structure, other site (principal); S32.000A Wedge compression fracture of unspecified lumbar vertebra, initial encounter for closed fracture; X58.XXXA Exposure to other specified factors, initial encounter ==